=== PATIENT | female | born 1980 | race Caucasian/White ===

== ENCOUNTER 2018-01-14 10:31 | Inpatient (IN) | payer BC ==
[~2018-01-14] VITALS: Ht 165.1 cm; Wt 75.0 kg
--- NOTE | ~2018-01-14 | OR ---
[facility] [address], [place] [address] Draft DATE OF OPERATION: 01/14/2018 SURGEON: Angelic Colmenares MD BLUEPRINT CLERK: Eddi Schuster MD. PREOPERATIVE DIAGNOSES: Term , previous section, labor, breech presentation. POSTOPERATIVE DIAGNOSES: Term , previous section, labor, breech presentation, delivered. PROCEDURE PERFORMED: Repeat section with lower segment transverse uterine incision. ANESTHESIA: Spinal. ESTIMATED BLOOD LOSS: 500 mL. DRAINS: Peters catheter. INDICATIONS AND FINDINGS: The patient is a 37-year-old female, 2, para 1, admitted at 37 and 3/7th weeks in early active labor. Over course of observation, she had changed her cervix from 1 to 3 cm and was alex every 1 to 4 minutes. Baby was also found to be breech. At the time of surgery, she was delivered of a little girl in a rashid breech via lower segment transverse uterine incision with Apgars of 7 and 8 and weight is pending. Uterus had some adhesions of the bladder flap over the anterior aspect of the uterus. The uterus, tubes, ovaries, and placenta otherwise appeared normal. There was a large amount of fluid noted at delivery as well. DESCRIPTION OF PROCEDURE: The patient was prepped and draped in the supine position. The prior scar was removed sharply. The incision was extended down to the fascia. The incision was extended laterally and the inferior and superior fascial flaps were created. The muscles were sharply divided and the peritoneum entered sharply and the incision extended superiorly PATIENT NAME: KENDRA JAMIL OPERATIVE REPORT DATE OF : 84 REPORT #: [id number] PHYSICIAN: ANGELIC COLMENARES MD PCP: GERHARD BETTENCOURT REPORT IS CONFIDENTIAL AND NOT TO BE RELEASED WITHOUT AUTHORIZATION [facility] [address], [place] [address] Draft and inferiorly. The Kolby retractor was then inserted. Peritoneal adhesions were filmy and were swept away digitally. The uterine incision was made in the upper aspect of the peritoneal reflection and the baby delivered with the above findings and handed off to the pediatric staff in attendance. The placenta was removed manually and the uterus was explored with a lap tape assuring no remaining fragments. The edges of the incision were identified and the uterus was closed in 2 layers using #0 Monocryl. The first layer was a running locking stitch and the second was a vertical imbricating stitch. Bleeding points were controlled over the surface of the uterus from the adhesions just with cautery. The abdomen was copiously irrigated and inspected and found to be hemostatic. The retractor was removed and the peritoneum identified. An ACell graft was then laid over the lower segment to aid in healing. The peritoneum was then closed with a running suture of #3-0 Vicryl. The muscles were brought together with interrupted sutures of #0 Vicryl. There was some bleeding at the upper raphae underneath the fascia and this was controlled with two [id number]-[id number] sutures of #2-0 Vicryl. Other bleeding points were controlled with cautery. This layer was also irrigated and seen to be hemostatic. ACell powder was sprinkled over the muscles to aid in healing. The fascia was then closed from each angle to the midline with a running suture of #0 Vicryl. The subcu layer was irrigated and inspected and bleeding points were controlled with cautery. Interrupted sutures of #3-0 Vicryl were placed closing the deep space. The skin was closed with laurel. All sponge and needle counts were correct. She tolerated the procedure well and was taken to the recovery room in good condition. MD RON Pulido/MODL /[id number] cc: Eddi Schuster MD Copies: EDDI SCHUSTER MD ~ PATIENT NAME: KENDRA JAMIL OPERATIVE REPORT DATE OF : 84 REPORT #: [id number] PHYSICIAN: ANGELIC COLMENARES MD PCP: GERHARD BETTENCOURT REPORT IS CONFIDENTIAL AND NOT TO BE RELEASED WITHOUT AUTHORIZATION
--- NOTE | 2018-01-14 15:19 | NUR ---
01/14/18 1519 Daniella Zhao 1504 PT ARRIVED TO ROOM DROWSY, RESP EVEN AND UNLABORED ON RA. VSS. PT DENIES AND NAUSEA. PT EDUCATION GIVEN ON RECOVERY PROCESS. 1515 HOB INCREASED TO 20 DEGREES, BP STABLE AND PT DENIES ANY PROBLEMS AT HTIS TIME.
--- NOTE | 2018-01-16 06:53 | PR ---
[facility] [address] [facility] [place], [place] [address] Signed PP Progress Notes Datetime Report Generated by CPKatalina: 01/16/2018 06:53 SUBJECTIVE: [id number] Pain: Within normal limits Nausea/Vomiting: Denies Flatus: Yes Vital Signs: [id number] Vital Signs: Reviewed; Within Normal Limits EXAM: [id number] Cardiovascular: Not Done Respiratory: Not Done Abdomen/Uterus: Abnormal Lochia: Normal Vulva/Perineum: Not Done Breasts: Not Done CVA Tenderness: Not Done Extremities: Normal Incision: Normal Progress: Abnormal Exam Comments: Fundus firm, NT @ U-2. IMPRESSION/PLAN/PROCEDURES: [id number] Impression: Normal progression Plan: Remove laurel; Discharge Other Plans: ambulate, shower Procedures: None Progress Notes: Doing well. She is ready for D/C. Signing Physician: Angelic Colmenares MD Copies: ~ *Electronically Signed* 01/16/18 0653 ANGELIC COLMENARES MD PATIENT NAME: KENDRA JAMIL PROGRESS NOTE DATE OF : 84 PHYSICIAN: ANGELIC COLMENARES MD RPT #: [id number] REPORT IS CONFIDENTIAL AND NOT TO BE RELEASED WITHOUT AUTHORIZATION
== END 2018-01-16 11:25 | disposition home or self-care (01) | DRG 766 ==
LOC: FBCO 10:31 → FBC 13:13
PROVIDERS: ADMIT Obstetrics & Gynecology
PROC: 10D00Z1 Extraction of Products of Conception, Low, Open Approach (ICD-10-PCS; principal; 2018-01-14 14:00)
DX: O34.211 Maternal care for low transverse scar from previous cesarean delivery (principal); N85.8 Other specified noninflammatory disorders of uterus; O32.1XX0 Maternal care for breech presentation, not applicable or unspecified; O99.62 Diseases of the digestive system complicating childbirth; K21.9 Gastro-esophageal reflux disease without esophagitis; Z79.899 Other long term (current) drug therapy; Z88.2 Allergy status to sulfonamides; Z3A.37 37 weeks gestation of pregnancy; Z37.0 Single live birth
CPT/HCPCS: 01961; 36415; 85027; C1763; J0690; J1100; J2270; J2274; J2370; J2405; J2590; J3010

== ENCOUNTER 2018-01-20 23:05 | Emergency (ER) | payer BC ==
[~2018-01-20] VITALS: Ht 165.1 cm; Wt 68.0 kg
[2018-01-21] MEDS ORDERED: ZOFRAN ODT4 MG PO (01:33)
== END 2018-01-21 01:46 | disposition home or self-care (01) ==
LOC: ED 23:05
DX: K29.00 Acute gastritis without bleeding (principal); Z88.2 Allergy status to sulfonamides
CPT/HCPCS: 80053; 81001; 85025; 96361; 96374; 96375; 99283; J2405; J2550; J7030

== ENCOUNTER 2018-01-25 21:29 | Emergency (ER) | payer BC ==
[~2018-01-25] VITALS: Ht 165.1 cm; Wt 68.0 kg
[~2018-01-25 21:29] MED LIST: ZOFRAN ODT4 MG PO
[2018-01-25] MEDS ORDERED: TRANSDERM-SCOP1 EACH TD (21:45)
[2018-01-25] MEDS ORDERED: COMPAZINE25 MG PR (23:59)
== END 2018-01-26 00:26 | disposition home or self-care (01) ==
LOC: ED 21:29
DX: O99.89 Other specified diseases and conditions complicating pregnancy, childbirth and the puerperium (principal); R11.0 Nausea; Z88.2 Allergy status to sulfonamides; Z79.899 Other long term (current) drug therapy
CPT/HCPCS: 74177; 80053; 81001; 83690; 85025; 96361; 96374; 96375; 99284; J2405; J2765; J7030; Q9967